=== PATIENT | male | born 1985 | race Two or more races ===

== ENCOUNTER → 2022-11-02 06:18 | Outpatient (CLI) | payer OTHER | END | disposition home or self-care (01) | LOC: LAB 06:18 | PROVIDERS: ATTEND General Practice | DX: E78.49 Other hyperlipidemia (principal); D64.9 Anemia, unspecified; N39.0 Urinary tract infection, site not specified; E03.8 Other specified hypothyroidism; N46.9 Male infertility, unspecified ==

== ENCOUNTER 2023-03-06 06:10 | Outpatient (CLI) | payer OTHER ==
[2023-03-06 07:08] LABS: HEMATOCRIT 42.9 % (39.0-48.0); HEMOGLOBIN 14.6 g/dL (13-16.00); MEAN CELL VOLUME 87.7 fL (80.0-100.00); MEAN CORPUSCULAR HEMOGLOBIN 29.9 pg (27.00-32.0); MEAN CORPUSCULAR HGB CONC 34.1 g/dl (32.0-36.0); PLATELET COUNT 248 K/uL (150-450); RED BLOOD COUNT 4.89 M/uL (4.00-6.00); RED CELL DISTRIBUTION WIDTH 13.2 % (11.5-14.5)
[2023-03-06 08:05] LABS: ALBUMIN 3.8 gm/dL (3.4-5.0); BILIRUBIN TOTAL 0.68 mg/dL (0.3-1.2); CALCIUM 9.3 mg/dL (8.5-10.1); CREATININE SERUM 0.8 mg/dL (0.70-1.30); GFR 109.38; GLOBULINA 3.9 G/DL (2.4-3.5); POTASSIUM 4.03 mEq/L (3.5-5.1); TOTAL PROTEIN 7.7 gm/dL (6.4-8.2); TSH 2.63 uIU/mL (0.358-3.74)
== END 2023-03-06 06:11 | disposition home or self-care (01) ==
LOC: LAB 06:10
PROVIDERS: ATTEND Radiology Diagnostic Radiology
DX: R86.8 Other abnormal findings in specimens from male genital organs (principal); N46.9 Male infertility, unspecified; E29.1 Testicular hypofunction

== ENCOUNTER 2023-03-09 07:32 | Outpatient (CLI) | payer OTHER | END 2023-03-09 07:48 | disposition home or self-care (01) | LOC: RAD 07:32 | PROVIDERS: ATTEND Urology | DX: E29.1 Testicular hypofunction (principal); R86.8 Other abnormal findings in specimens from male genital organs; N46.9 Male infertility, unspecified; R10.9 Unspecified abdominal pain ==

== ENCOUNTER 2024-01-16 08:44 | Outpatient (CLI) | payer OTHER ==
[2024-01-16 09:44] LABS: HEMATOCRIT 39.2 % (39.0-48.0); HEMOGLOBIN 13.3 g/dL (13-16.00); MEAN CELL VOLUME 88.1 fL (80.0-100.00); PLATELET COUNT 238 K/uL (150-450); RED BLOOD COUNT 4.45 M/uL (4.00-6.00)
[2024-01-16 10:23] LABS: CREATININE SERUM 0.83 mg/dL (0.70-1.30); GFR 104.83; POTASSIUM 3.8 mEq/L (3.5-5.1)
== END 2024-01-16 08:47 | disposition home or self-care (01) ==
LOC: LAB 08:44
DX: Z13.0 Encounter for screening for diseases of the blood and blood-forming organs and certain disorders involving the immune mechanism (principal)

== ENCOUNTER 2024-07-09 10:04 | Outpatient (CLI) | payer OTHER ==
[2024-07-09 10:57] LABS: HEMATOCRIT 41.6 % (39.0-48.0); HEMOGLOBIN 14.2 g/dL (13-16.00); MEAN CELL VOLUME 87.2 fL (80.0-100.00); MEAN CORPUSCULAR HEMOGLOBIN 29.8 pg (27.00-32.0); MEAN CORPUSCULAR HGB CONC 34.2 g/dl (32.0-36.0); PLATELET COUNT 248 K/uL (150-450); RED BLOOD COUNT 4.77 M/uL (4.00-6.00); RED CELL DISTRIBUTION WIDTH 13.1 % (11.5-14.5); URINE APPEARANCE Clear; URINE BILIRRUBIN Negative (NEGATIVE); URINE BLOOD Small; URINE COLOR Yellow; URINE GLUCOSE Negative (NEGATIVE); URINE KETONE Negative (NEGATIVE); URINE LEUKOCYTE Negative; URINE NITRATE Negative; URINE PROTEIN Negative (NEGATIVE); URINE UROBILINOGEN 0.2 E.U./dl
[2024-07-09 11:02] LABS: URINE BACTERIA 13.4 uL (0.0-1933); URINE EPITHELIAL CELLS 4.4 uL (0.0-38.8); URINE RBC 72.7 uL (0.0-20.8); URINE WBC 3.3 uL (0.0-23.2)
[2024-07-09 12:02] LABS: BILIRUBIN TOTAL 0.57 mg/dL (0.3-1.2); CALCIUM 9.2 mg/dL (8.5-10.1); CHOL HDL RATIO 4.4 (0-5.0); CREATININE SERUM 0.69 mg/dL (0.70-1.30); GFR 129.02; GLOBULINA 3.7 G/DL (2.4-3.5); POTASSIUM 4.48 mEq/L (3.5-5.1); T4 FREE 0.87 NG/ML (0.76-1.46); TOTAL PROTEIN 7.7 gm/dL (6.4-8.2); TSH 1.79 uIU/mL (0.358-3.74)
== END 2024-07-09 10:08 | disposition home or self-care (01) ==
LOC: LAB 10:04
DX: E78.01 Familial hypercholesterolemia (principal); E11.9 Type 2 diabetes mellitus without complications; D64.9 Anemia, unspecified; N39.0 Urinary tract infection, site not specified; I10 Essential (primary) hypertension; E03.8 Other specified hypothyroidism

== ENCOUNTER 2024-09-17 07:09 | Outpatient (CLI) | payer OTHER ==
[2024-09-17 08:10] LABS: URINE APPEARANCE Clear; URINE BILIRRUBIN Negative (NEGATIVE); URINE BLOOD Moderate; URINE COLOR Yellow; URINE GLUCOSE Negative (NEGATIVE); URINE KETONE Negative (NEGATIVE); URINE LEUKOCYTE Negative; URINE NITRATE Negative; URINE PROTEIN Negative (NEGATIVE); URINE UROBILINOGEN 0.2 E.U./dl
[2024-09-17 08:11] LABS: URINE BACTERIA 25.7 uL (0.0-1933); URINE RBC 32.1 uL (0.0-20.8); URINE WBC 2.6 uL (0.0-23.2)
[2024-09-17 08:12] LABS: URINE CAST 0.14 uL (0.0-1.40)
[2024-09-17 08:32] LABS: BILIRUBIN TOTAL 0.6 mg/dL (0.3-1.2); CALCIUM 8.8 mg/dL (8.5-10.1); CHOL HDL RATIO 3.7 (0-5.0); CREATININE SERUM 0.75 mg/dL (0.70-1.30); GFR 117.18; GLOBULINA 3.7 G/DL (2.4-3.5); POTASSIUM 4.14 mEq/L (3.5-5.1); TOTAL PROTEIN 7.7 gm/dL (6.4-8.2); TSH 3.3 uIU/mL (0.358-3.74)
[2024-09-17 10:53] LABS: EOS % 2.4 % (0.7-7.0); HEMATOCRIT 41.3 % (40.1-51.0); LYMPH % 42.3 % (19.3-53.1); MEAN CORPUSCULAR HEMOGLOBIN 29.5 pg (25.6-32.2); MONO % 8.8 % (4.7-12.5); NEUT % 45.8 % (34.0-71.1); PLATELET COUNT 280 K/uL (163-369); RED BLOOD COUNT 4.74 M/uL (4.63-6.08); RED CELL DISTRIBUTION WIDTH 12.5 % (11.6-14.4)
[2024-09-17 10:54] LABS: BASO % 0.7 % (0.1-1.2); EOS # 0.14 (0.04-0.54); LYMPH # 2.49 (1.18-3.74); MONO # 0.52 (0.24-0.82); NEUT # 2.69 (1.56-6.13)
[2024-09-19 09:08] LABS: ESTRADIOL SERUM 13.3 pg/mL (7.6-42.6); FOLLICLE STIMULATING HORMONE 6.9 mIU/mL (1.5-12.4); LEUTEINIZING HORMONE 7.3 mIU/mL (1.7-8.6)
== END 2024-09-17 13:30 | disposition home or self-care (01) ==
LOC: LAB 07:09
DX: R86.8 Other abnormal findings in specimens from male genital organs (principal); E29.1 Testicular hypofunction; N46.9 Male infertility, unspecified